=== PATIENT | female | born 1985 | race Two or more races ===

== ENCOUNTER 2018-01-22 13:17 | Inpatient (IN) | payer SELFPAY ==
[~2018-01-22] VITALS: Ht 162.6 cm; Wt 84.4 kg
[~2018-01-22 13:17] MED LIST: ceFAZolin 2GM PREMIX 2 GM/50 ML BAG IV ONE
[2018-01-22] MEDS ORDERED: ACETAMINOPHEN 325 MG TABLET. PO PRN (13:45)
[2018-01-22] MEDS ORDERED: ONDANSETRON PF 4 MG/2 ML VIAL. IV PRN ×2 (13:45→18:00)
[2018-01-22] MEDS ORDERED: MAG HYDROX/ALUMINUM HYD/SIMETH 30 ML ORAL.SUSP PO PRN ×2 (13:45→18:00)
[2018-01-22 13:47] LABS: BILIRUBIN,URINE NEGATIVE (NEG); CLARITY,URINE CLEAR; COLOR,URINE YELLOW; NITRITE,URINE NEGATIVE (NEG); PROTEIN,URINE NEGATIVE (NEG-TRACE); UROBILINOGEN,URINE 0.2 mg/dL (0.2 mg/dL)
[2018-01-22 14:03] LABS: BACTERIA,URINE MANY /HPF (0-FEW); RBC,URINE 0 /HPF (0-2); SQUAMOUS EPITHELIAL CELL,UR MOD /LPF
[2018-01-22] MEDS: IV RINGERS,LACTATED 1000ML 1,000 ML IV SCH (14:14)
[2018-01-22] MEDS ORDERED: CITRIC ACID/SODIUM CITRATE 30 ML SOLUTION. PO ONE (15:30)
[2018-01-22] MEDS ORDERED: 0.9 % SODIUM CHLORIDE 10 ML DISP.SYRIN. IV PRN ×2 (15:45→18:00)
[2018-01-22] MEDS ORDERED: OXYTOCIN 30 UNIT/500 ML PREMIX 500 ML IV PRN ×2 (15:45→18:00)
[2018-01-22 16:08] LABS: BASO % 0 % (0-3); EOS % 0 % (0-3); HEMATOCRIT 35.5 % (36.0-47.0); HEMOGLOBIN 12.1 g/dL (12.0-15.5); LYMPH # 2.5 x10^3/uL (1.0-4.8); LYMPH % 23 % (24-48); MEAN CORPUSCULAR HEMOGLOBIN 30 pg (25-35); MEAN CORPUSCULAR HGB CONC 34 g/dL (31-37); MEAN CORPUSCULAR VOLUME 87 fL (79-100); MONO # 0.5 x10^3/uL (0.0-1.1); MONO % 5 % (0-9); NEUT # 7.9 x10^3uL (1.8-7.7); NEUT % 72 % (31-73); PLATELET COUNT 169 x10^3/uL (140-400); RED BLOOD COUNT 4.09 x10^6/uL (3.50-5.40); RED CELL DISTRIBUTION WIDTH 13.6 % (11.5-14.5)
[2018-01-22] MEDS ORDERED: fentaNYL PF VIAL 100 MCG/2 ML VIAL ONE ×2 (16:26→16:48)
[2018-01-22] MEDS ORDERED: fentaNYL PF VIAL 100 MCG/2 ML VIAL IV PRN (16:30)
[2018-01-22] MEDS ORDERED: MORPHINE PF 5 MG/10 ML VIAL. ONE (16:48)
--- NOTE | 2018-01-22 16:49 | PDOC1 ---
OB - History Hx of Present Care: Good Care Ultrasounds: Normal mid trimester US Obstetrical Complications: None Medical Complications: None Past Family/Social History * Past Medical, Surgical, Family and Obstetric Histories reviewed from chart. Rubella: Immune RPR/VDRL: Negative GBS Status: Negative HBsAG: Negative OB - Chief Complaint & HPI Date of Admission: Date of Admission: Jan 22, 2018 at 13:17 Chief Complaint/History : 3 Para: 1 EGA: 38 Reason for admission: active labor (previous c/s) Indication for : desires repeat Admission Nurse Assessment Rev: Yes OB - Admission Exam Physical Exam Vitals: VS - Last 72 Hours, by Label Date Time Temp Pulse Resp B/P (MAP) Pulse Ox O2 Delivery O2 Flow Rate FiO2 01/22/18 16:28 Room Air HEENT: Normal Heart: Regular Rate Lungs: Clear Abdomen: Gravid, Non tender, Soft Extremities: Edema Reflexes: Normal Cervical Dilatation: 1cm Effacement: 75% Station: -3 Membranes: Intact Heart Rate: Normal Accelerations: Accelerations Present Decelerations: No decelerations Contractions on Admission: < 5 Minutes Apart Intensity: Firm Text A: 38 wks IUP Previous c/s Active labor P: Admit for repeat c/s. LI ASTORGA Jr, MD Jan 22, 2018 16:49
[2018-01-22] MEDS ORDERED: FAMOTIDINE 20 MG/2 ML VIAL ONE (17:43)
[2018-01-22] MEDS ORDERED: ONDANSETRON PF 4 MG/2 ML VIAL. ONE (17:43)
[2018-01-22] MEDS ORDERED: METOCLOPRAMIDE HCL 10 MG/2 ML VIAL. ONE (17:43)
--- NOTE | 2018-01-22 17:47 | PDOC4 ---
OB Operative Note Date: Jan 22, 2018 PRE OP DIAGNOSIS: Previoujs C- section POST OP DIAGNOSIS: Previous C- section OPERATION PERFORMED: R [facility] Surgeon Dr. Webb Anesthesia: Regional (Spinal) Blood Loss 500 ml Specimen placenta and OB Findings: Position (Vertex), Sex (Female), (8/9), Weight (6 Lb 10 oz) Complications none Additional Remarks pt. LI Bonner Jr, MD Jan 22, 2018 17:47
--- NOTE | 2018-01-22 17:58 | OP ---
DATE OF SURGERY: 01/22/2018 PREOPERATIVE DIAGNOSES: 1. A 38 weeks intrauterine . 2. Previous . 3. Active labor. POSTOPERATIVE DIAGNOSES: 1. A 38 weeks intrauterine . 2. Previous . 3. Active labor. PROCEDURE: Repeat low transverse section. SURGEON: Li Webb MD ANESTHESIA: Spinal. ESTIMATED BLOOD LOSS: 500 mL. COMPLICATIONS: None. FINDINGS: Viable female infant, Apgars 8 and 9, weight 6 pound 10 ounces. Three-vessel cord placenta delivered manually intact. SUMMARY: A 38 weeks term gestation, presented in active labor. The patient was counseled on the risks, benefits and expectations of repeat section and voiced clear understanding to proceed. DESCRIPTION OF PROCEDURE: The patient was taken to surgery suite and placed in dorsal supine position where she was prepped with ChloraPrep and draped in a sterile fashion. After adequate anesthesia, a Pfannenstiel skin incision was made with scalpel down to and through the fascia. Fascia was extended laterally using curved Blackman scissors. The superior edge of the fascia was grasped with 2 Yusra clamps and dissected free of the abdominal rectus muscle using blunt dissection along with Bovie cautery. The same process took place inferiorly. The abdominal rectus muscles were then dissected bluntly at the midline. The peritoneum was grasped with 2 hemostats and entered sharply with Metzenbaum scissors. This incision was extended superiorly as well as inferiorly. Ken ring retractor was placed. Low transverse hysterotomy incision was made with scalpel down to and through the amniotic sac. Hysterotomy incision was extended laterally and superiorly digitally. With the aid of fundal pressure, the infant's head was delivered in a smooth atraumatic manner. With additional fundal pressure, the anterior shoulder was delivered followed by posterior shoulder, and rest of female infant was delivered. The infant was suctioned with a bulb syringe orally and nasally, umbilical cord was clamped twice and cut. A viable female infant was handed to waiting nursing staff. Umbilical cord blood was then obtained. Three-vessel cord placenta was delivered manually intact. The uterus was then exteriorized and cleared of clot and debris with a moist lap. Hysterotomy incision was reapproximated using 1-0 Vicryl suture in running locked fashion. Uterus palpated firm. Fallopian tubes and ovaries appeared normal bilaterally. Posterior cul-de-sac was cleared of clot and debris with a moist lap. The uterus was then returned to the abdomen. The hysterotomy incision was reviewed and was hemostatic. The pericolic gutters were then cleared of clot and debris with a moist lap. Interceed was placed over the hysterotomy incision in an inverted T fashion. The Ken ring retractor was removed. The peritoneum was reapproximated using 1-0 Vicryl suture in running fashion. Fascia was reapproximated using 0 Vicryl suture in running fashion. Skin was reapproximated using 4-0 Vicryl suture in subcuticular manner. The patient tolerated the procedure well and was taken to recovery room in stable condition. Sponge and needle count correct x 3. LI WEBB MD DR: [facility]/larry JOB#: [id number] / [id number]
[2018-01-22] MEDS ORDERED: diphenhydrAMINE ORAL ELIXIR 12.5 MG/5 ML ML PO PRN (18:00)
[2018-01-22] MEDS ORDERED: IBUPROFEN 800 MG TABLET. PO PRN (18:00)
[2018-01-22] MEDS ORDERED: SIMETHICONE 80 MG TAB.CHEW PO PRN (18:00)
[2018-01-22] MEDS ORDERED: ZOLPIDEM 5 MG TABLET. PO PRN (18:00)
[2018-01-22] MEDS: KETOROLAC 30 MG/ML VIAL. IV PRN (19:16)
[2018-01-22 21:35] VITALS: BP 98/63
[2018-01-22 22:11] VITALS: BP 106/66
[2018-01-22 23:10] VITALS: BP 107/59
[2018-01-23 04:34] LABS: BASO % 0 % (0-3); EOS # 0.1 x10^3/uL (0.0-0.7); EOS % 1 % (0-3); HEMATOCRIT 32.1 % (36.0-47.0); LYMPH # 2.6 x10^3/uL (1.0-4.8); LYMPH % 22 % (24-48); MEAN CORPUSCULAR HEMOGLOBIN 30 pg (25-35); MEAN CORPUSCULAR HGB CONC 34 g/dL (31-37); MEAN CORPUSCULAR VOLUME 87 fL (79-100); MONO # 0.8 x10^3/uL (0.0-1.1); MONO % 7 % (0-9); NEUT # 8.4 x10^3uL (1.8-7.7); NEUT % 70 % (31-73); PLATELET COUNT 144 x10^3/uL (140-400); RED BLOOD COUNT 3.71 x10^6/uL (3.50-5.40); RED CELL DISTRIBUTION WIDTH 13.8 % (11.5-14.5)
[2018-01-23] MEDS: IV RINGERS,LACTATED 1000ML 1,000 ML IV SCH (05:24)
[2018-01-23 06:20] VITALS: BP 107/58
[2018-01-23] MEDS ORDERED: FERROUS SULFATE 325 MG TABLET. PO PRN (08:00)
[2018-01-23] MEDS: KETOROLAC 30 MG/ML VIAL. IV PRN (08:31)
[2018-01-23] MEDS: oxyCODONE/APAP 5/325 1 TAB TABLET PO PRN ×2 (08:31→14:39)
[2018-01-23 11:10] VITALS: BP 102/64
[2018-01-23] MEDS: IBUPROFEN 800 MG TABLET. PO PRN ×2 (14:39→22:22)
[2018-01-23 16:41] VITALS: BP 101/58
--- NOTE | 2018-01-23 19:57 | PDOC ---
OB Progress Note Date of Service 01/23/18 Time of Evaluation 0755 Notes Pt. feeling well. No complaints. Lab Laboratory Tests Test 01/22/18 13:35 01/22/18 15:55 01/23/18 04:00 Urine Collection Type Unknown Urine Color Yellow Urine Clarity Clear Urine pH 6.0 Urine Specific [place] 1.025 Urine Protein Negative mg/dL (NEG-TRACE) Urine Glucose (UA) Negative mg/dL (NEG) Urine Ketones (Stick) Negative mg/dL (NEG) Urine Blood Negative (NEG) Urine Nitrite Negative (NEG) Urine Bilirubin Negative (NEG) Urine Urobilinogen Dipstick 0.2 mg/dL (0.2 mg/dL) Urine Leukocyte Esterase Small (NEG) Urine RBC 0 /HPF (0-2) Urine WBC 11-20 /HPF (0-4) Urine Squamous Epithelial Cells Mod /LPF Urine Bacteria Many /HPF (0-FEW) Urine Mucus Marked /LPF White Blood Count 11.0 x10^3/uL (4.0-11.0) 12.0 x10^3/uL (4.0-11.0) Red Blood Count 4.09 x10^6/uL (3.50-5.40) 3.71 x10^6/uL (3.50-5.40) Hemoglobin 12.1 g/dL (12.0-15.5) 11.0 g/dL (12.0-15.5) Hematocrit 35.5 % (36.0-47.0) 32.1 % (36.0-47.0) Mean Corpuscular Volume 87 fL (79-100) 87 fL (79-100) Mean Corpuscular Hemoglobin 30 pg (25-35) 30 pg (25-35) Mean Corpuscular Hemoglobin Concent 34 g/dL (31-37) 34 g/dL (31-37) Red Cell Distribution Width 13.6 % (11.5-14.5) 13.8 % (11.5-14.5) Platelet Count 169 x10^3/uL (140-400) 144 x10^3/uL (140-400) Neutrophils (%) (Auto) 72 % (31-73) 70 % (31-73) Lymphocytes (%) (Auto) 23 % (24-48) 22 % (24-48) Monocytes (%) (Auto) 5 % (0-9) 7 % (0-9) Eosinophils (%) (Auto) 0 % (0-3) 1 % (0-3) Basophils (%) (Auto) 0 % (0-3) 0 % (0-3) Neutrophils # (Auto) 7.9 x10^3uL (1.8-7.7) 8.4 x10^3uL (1.8-7.7) Lymphocytes # (Auto) 2.5 x10^3/uL (1.0-4.8) 2.6 x10^3/uL (1.0-4.8) Monocytes # (Auto) 0.5 x10^3/uL (0.0-1.1) 0.8 x10^3/uL (0.0-1.1) Eosinophils # (Auto) 0.0 x10^3/uL (0.0-0.7) 0.1 x10^3/uL (0.0-0.7) Basophils # (Auto) 0.0 x10^3/uL (0.0-0.2) 0.0 x10^3/uL (0.0-0.2) Treponema pallidum Antibody Nonreactive (Nonreactive) Laboratory Tests Test 01/23/18 04:00 White Blood Count 12.0 x10^3/uL (4.0-11.0) Red Blood Count 3.71 x10^6/uL (3.50-5.40) Hemoglobin 11.0 g/dL (12.0-15.5) Hematocrit 32.1 % (36.0-47.0) Mean Corpuscular Volume 87 fL (79-100) Mean Corpuscular Hemoglobin 30 pg (25-35) Mean Corpuscular Hemoglobin Concent 34 g/dL (31-37) Red Cell Distribution Width 13.8 % (11.5-14.5) Platelet Count 144 x10^3/uL (140-400) Neutrophils (%) (Auto) 70 % (31-73) Lymphocytes (%) (Auto) 22 % (24-48) Monocytes (%) (Auto) 7 % (0-9) Eosinophils (%) (Auto) 1 % (0-3) Basophils (%) (Auto) 0 % (0-3) Neutrophils # (Auto) 8.4 x10^3uL (1.8-7.7) Lymphocytes # (Auto) 2.6 x10^3/uL (1.0-4.8) Monocytes # (Auto) 0.8 x10^3/uL (0.0-1.1) Eosinophils # (Auto) 0.1 x10^3/uL (0.0-0.7) Basophils # (Auto) 0.0 x10^3/uL (0.0-0.2) Medications Current Medications Ringer's Solution 1,000 ml @ 125 mls/hr Q8H IV Last administered on 01/23/18at 05:24; Start 01/22/18 at 13:34; Stop 01/23/18 at 13:46; Status DC Acetaminophen (Tylenol) 650 mg PRN Q6HRS PRN PO PAIN, TEMP > 100.5'F; Start at 13:45 Al Hydroxide/Mg Hydroxide (Mylanta Plus Xs) 15 ml PRN Q4HRS PRN PO HEARTBURN / GAS; Start 01/22/18 at 13:45; Stop 01/23/18 at 14:38; Status DC Ondansetron HCl (Zofran) 4 mg PRN Q6HRS PRN IV NAUSEA; Start 01/22/18 at 13:45 ; Stop 01/23/18 at 13:46; Status DC Citric Acid/ Sodium Citrate (Bicitra) 30 ml 1X ONCE PO Last administered on at 16:28; Start 01/22/18 at 15:30; Stop 01/23/18 at 13:46; Status DC Cefazolin Sodium/ Dextrose 50 ml @ 100 mls/hr 1X ONCE IV ; Start 01/22/18 at 15:45; Stop 01/23/18 at 13:46; Status DC Sodium Chloride (Normal Saline Flush) 3 ml QSHIFT PRN IV AFTER MEDS AND BLOOD DRAWS; Start 01/22/18 at 15:45; Stop 01/23/18 at 13:46; Status DC Oxytocin/Sodium Chloride 500 ml @ 0 mls/hr CONT PRN PRN IV Post delivery bleeding; Start 01/22/18 at 15:45; Stop 01/23/18 at 13:46; Status DC Ibuprofen (Motrin) 800 mg PRN Q6HRS PRN PO PAIN Last administered on 01/23/18at 14:39; Start 01/22/18 at 15:45 Fentanyl Citrate (Fentanyl 2ml Vial) 100 mcg PRN Q30MIN PRN IV PAIN Last administered on 01/22/18at 16:28; Start 01/22/18 at 16:30; Stop 01/23/18 at 13:46 ; Status DC Fentanyl Citrate (Fentanyl 2ml Vial) 100 mcg STK-MED ONCE .ROUTE ; Start at 16:26; Stop 01/23/18 at 13:46; Status DC Morphine Sulfate (Morphine Preservative Free) 5 mg STK-MED ONCE .ROUTE ; Start 01/22/18 at 16:48; Stop 01/23/18 at 13:46; Status DC Fentanyl Citrate (Fentanyl 2ml Vial) 100 mcg STK-MED ONCE .ROUTE ; Start at 16:48; Stop 01/23/18 at 13:46; Status DC Famotidine (Pepcid Vial) 20 mg STK-MED ONCE .ROUTE ; Start 01/22/18 at 17:43; Stop 01/23/18 at 13:46; Status DC Metoclopramide HCl (Reglan Vial) 10 mg STK-MED ONCE .ROUTE ; Start 01/22/18 at 17:43; Stop 01/23/18 at 13:46; Status DC Ondansetron HCl (Zofran) 4 mg STK-MED ONCE .ROUTE ; Start 01/22/18 at 17:43; Stop 01/23/18 at 13:46; Status DC Sodium Chloride (Normal Saline Flush) 3 ml QSHIFT PRN IV AFTER MEDS AND BLOOD DRAWS; Start 01/22/18 at 18:00; Stop 01/23/18 at 13:46; Status DC Oxytocin/Sodium Chloride 500 ml @ 125 mls/hr CONT PRN IV EXCESSIVE POST- BLEEDING; Start 01/22/18 at 18:00; Stop 01/23/18 at 01:59; Status DC Ibuprofen (Motrin) 800 mg PRN Q8HRS PRN PO INFLAMMATION; Start 01/22/18 at 18: 00 Ondansetron HCl (Zofran) 4 mg PRN Q6HRS PRN IV NAUSEA/VOMITING; Start 01/22/18 at 18:00 Docusate Sodium (Colace) 100 mg PRN BID PRN PO CONSTIPATION; Start 01/22/18 at 18:00 Al Hydroxide/Mg Hydroxide (Mylanta Plus Xs) 30 ml PRN Q4HRS PRN PO HEARTBURN / GAS; Start 01/22/18 at 18:00 Simethicone (Gas-X) 80 mg PRN AFTMEALHC PRN PO GAS / BLOATING; Start 01/22/18 at 18:00 Diphenhydramine HCl (Benadryl Oral Elixir) 12.5 mg PRN Q6HRS PRN PO ITCHING Last administered on 01/23/18at 12:05; Start 01/22/18 at 18:00 Ferrous Sulfate (Feosol) 325 mg BIDWMEALS PRN PO SEE COMMENTS; Start 01/23/18 at 08:00; Stop 01/23/18 at 08:00; Status DC Zolpidem Tartrate (Ambien) 5 mg PRN QHS PRN PO INSOMNIA, MAY REPEAT X1; Start 01/22/18 at 18:00 Oxycodone/ Acetaminophen (Percocet 5/325) 2 tab PRN Q4HRS PRN PO MODERATE PAIN , SEVERE PAIN Last administered on 01/23/18at 14:39; Start 01/22/18 at 18:00 Ketorolac Tromethamine (Toradol 30mg Vial) 30 mg PRN Q6HRS PRN IV PAIN Last administered on 01/23/18at 08:31; Start 01/22/18 at 18:00; Stop 01/27/18 at 17:59 Cefazolin Sodium/ Dextrose (Ancef 2gm Premix) 2 gm STK-MED ONCE IV ; Start 01/22 at 12:00; Stop 01/23/18 at 13:15; Status DC Exam Abd: soft, non tender, fundus firm Incision site: clean, dry and intact Assessment POD#1 s/p repeat c/s Plan of Care: Continue current Tx, Mgmt LI ASTORGA Jr, MD Jan 23, 2018 19:56
[2018-01-23] MEDS: DOCUSATE SODIUM 100 MG CAPSULE. PO PRN (22:22)
[2018-01-23 23:22] VITALS: BP 109/69
[2018-01-24 06:31] VITALS: BP 117/67
--- NOTE | 2018-01-24 08:08 | PDOC ---
OB Progress Note Date of Service 01/24/18 Time of Evaluation 0805 Notes Pt. feeling well. No complaints. Lab Laboratory Tests Test 01/22/18 13:35 01/22/18 15:55 01/23/18 04:00 Urine Collection Type Unknown Urine Color Yellow Urine Clarity Clear Urine pH 6.0 Urine Specific [place] 1.025 Urine Protein Negative mg/dL (NEG-TRACE) Urine Glucose (UA) Negative mg/dL (NEG) Urine Ketones (Stick) Negative mg/dL (NEG) Urine Blood Negative (NEG) Urine Nitrite Negative (NEG) Urine Bilirubin Negative (NEG) Urine Urobilinogen Dipstick 0.2 mg/dL (0.2 mg/dL) Urine Leukocyte Esterase Small (NEG) Urine RBC 0 /HPF (0-2) Urine WBC 11-20 /HPF (0-4) Urine Squamous Epithelial Cells Mod /LPF Urine Bacteria Many /HPF (0-FEW) Urine Mucus Marked /LPF White Blood Count 11.0 x10^3/uL (4.0-11.0) 12.0 x10^3/uL (4.0-11.0) Red Blood Count 4.09 x10^6/uL (3.50-5.40) 3.71 x10^6/uL (3.50-5.40) Hemoglobin 12.1 g/dL (12.0-15.5) 11.0 g/dL (12.0-15.5) Hematocrit 35.5 % (36.0-47.0) 32.1 % (36.0-47.0) Mean Corpuscular Volume 87 fL (79-100) 87 fL (79-100) Mean Corpuscular Hemoglobin 30 pg (25-35) 30 pg (25-35) Mean Corpuscular Hemoglobin Concent 34 g/dL (31-37) 34 g/dL (31-37) Red Cell Distribution Width 13.6 % (11.5-14.5) 13.8 % (11.5-14.5) Platelet Count 169 x10^3/uL (140-400) 144 x10^3/uL (140-400) Neutrophils (%) (Auto) 72 % (31-73) 70 % (31-73) Lymphocytes (%) (Auto) 23 % (24-48) 22 % (24-48) Monocytes (%) (Auto) 5 % (0-9) 7 % (0-9) Eosinophils (%) (Auto) 0 % (0-3) 1 % (0-3) Basophils (%) (Auto) 0 % (0-3) 0 % (0-3) Neutrophils # (Auto) 7.9 x10^3uL (1.8-7.7) 8.4 x10^3uL (1.8-7.7) Lymphocytes # (Auto) 2.5 x10^3/uL (1.0-4.8) 2.6 x10^3/uL (1.0-4.8) Monocytes # (Auto) 0.5 x10^3/uL (0.0-1.1) 0.8 x10^3/uL (0.0-1.1) Eosinophils # (Auto) 0.0 x10^3/uL (0.0-0.7) 0.1 x10^3/uL (0.0-0.7) Basophils # (Auto) 0.0 x10^3/uL (0.0-0.2) 0.0 x10^3/uL (0.0-0.2) Treponema pallidum Antibody Nonreactive (Nonreactive) Medications Current Medications Ringer's Solution 1,000 ml @ 125 mls/hr Q8H IV Last administered on 01/23/18at 05:24; Start 01/22/18 at 13:34; Stop 01/23/18 at 13:46; Status DC Acetaminophen (Tylenol) 650 mg PRN Q6HRS PRN PO PAIN, TEMP > 100.5'F; Start at 13:45 Al Hydroxide/Mg Hydroxide (Mylanta Plus Xs) 15 ml PRN Q4HRS PRN PO HEARTBURN / GAS; Start 01/22/18 at 13:45; Stop 01/23/18 at 14:38; Status DC Ondansetron HCl (Zofran) 4 mg PRN Q6HRS PRN IV NAUSEA; Start 01/22/18 at 13:45 ; Stop 01/23/18 at 13:46; Status DC Citric Acid/ Sodium Citrate (Bicitra) 30 ml 1X ONCE PO Last administered on at 16:28; Start 01/22/18 at 15:30; Stop 01/23/18 at 13:46; Status DC Cefazolin Sodium/ Dextrose 50 ml @ 100 mls/hr 1X ONCE IV ; Start 01/22/18 at 15:45; Stop 01/23/18 at 13:46; Status DC Sodium Chloride (Normal Saline Flush) 3 ml QSHIFT PRN IV AFTER MEDS AND BLOOD DRAWS; Start 01/22/18 at 15:45; Stop 01/23/18 at 13:46; Status DC Oxytocin/Sodium Chloride 500 ml @ 0 mls/hr CONT PRN PRN IV Post delivery bleeding; Start 01/22/18 at 15:45; Stop 01/23/18 at 13:46; Status DC Ibuprofen (Motrin) 800 mg PRN Q6HRS PRN PO PAIN Last administered on 01/23/18at 22:22; Start 01/22/18 at 15:45 Fentanyl Citrate (Fentanyl 2ml Vial) 100 mcg PRN Q30MIN PRN IV PAIN Last administered on 01/22/18at 16:28; Start 01/22/18 at 16:30; Stop 01/23/18 at 13:46 ; Status DC Fentanyl Citrate (Fentanyl 2ml Vial) 100 mcg STK-MED ONCE .ROUTE ; Start at 16:26; Stop 01/23/18 at 13:46; Status DC Morphine Sulfate (Morphine Preservative Free) 5 mg STK-MED ONCE .ROUTE ; Start 01/22/18 at 16:48; Stop 01/23/18 at 13:46; Status DC Fentanyl Citrate (Fentanyl 2ml Vial) 100 mcg STK-MED ONCE .ROUTE ; Start at 16:48; Stop 01/23/18 at 13:46; Status DC Famotidine (Pepcid Vial) 20 mg STK-MED ONCE .ROUTE ; Start 01/22/18 at 17:43; Stop 01/23/18 at 13:46; Status DC Metoclopramide HCl (Reglan Vial) 10 mg STK-MED ONCE .ROUTE ; Start 01/22/18 at 17:43; Stop 01/23/18 at 13:46; Status DC Ondansetron HCl (Zofran) 4 mg STK-MED ONCE .ROUTE ; Start 01/22/18 at 17:43; Stop 01/23/18 at 13:46; Status DC Sodium Chloride (Normal Saline Flush) 3 ml QSHIFT PRN IV AFTER MEDS AND BLOOD DRAWS; Start 01/22/18 at 18:00; Stop 01/23/18 at 13:46; Status DC Oxytocin/Sodium Chloride 500 ml @ 125 mls/hr CONT PRN IV EXCESSIVE POST- BLEEDING; Start 01/22/18 at 18:00; Stop 01/23/18 at 01:59; Status DC Ibuprofen (Motrin) 800 mg PRN Q8HRS PRN PO INFLAMMATION; Start 01/22/18 at 18: 00 Ondansetron HCl (Zofran) 4 mg PRN Q6HRS PRN IV NAUSEA/VOMITING; Start 01/22/18 at 18:00 Docusate Sodium (Colace) 100 mg PRN BID PRN PO CONSTIPATION Last administered on 01/23/18at 22:22; Start 01/22/18 at 18:00 Al Hydroxide/Mg Hydroxide (Mylanta Plus Xs) 30 ml PRN Q4HRS PRN PO HEARTBURN / GAS; Start 01/22/18 at 18:00 Simethicone (Gas-X) 80 mg PRN AFTMEALHC PRN PO GAS / BLOATING; Start 01/22/18 at 18:00 Diphenhydramine HCl (Benadryl Oral Elixir) 12.5 mg PRN Q6HRS PRN PO ITCHING Last administered on 01/23/18at 12:05; Start 01/22/18 at 18:00 Ferrous Sulfate (Feosol) 325 mg BIDWMEALS PRN PO SEE COMMENTS; Start 01/23/18 at 08:00; Stop 01/23/18 at 08:00; Status DC Zolpidem Tartrate (Ambien) 5 mg PRN QHS PRN PO INSOMNIA, MAY REPEAT X1; Start 01/22/18 at 18:00 Oxycodone/ Acetaminophen (Percocet 5/325) 2 tab PRN Q4HRS PRN PO MODERATE PAIN , SEVERE PAIN Last administered on 01/23/18at 14:39; Start 01/22/18 at 18:00 Ketorolac Tromethamine (Toradol 30mg Vial) 30 mg PRN Q6HRS PRN IV PAIN Last administered on 01/23/18at 08:31; Start 01/22/18 at 18:00; Stop 01/27/18 at 17:59 Cefazolin Sodium/ Dextrose (Ancef 2gm Premix) 2 gm STK-MED ONCE IV ; Start 01/22 at 12:00; Stop 01/23/18 at 13:15; Status DC Exam Abd: soft, non tender, fundus firm Incision site: clean, dry and intact Assessment POD#2 s/p repeat c/s Plan of Care: Continue current Tx, Mgmt LI ASTORGA Jr, MD Jan 24, 2018 08:08
[2018-01-24 08:45] VITALS: BP 113/69
[2018-01-24] MEDS: IBUPROFEN 800 MG TABLET. PO PRN (08:53)
[2018-01-24] MEDS: DOCUSATE SODIUM 100 MG CAPSULE. PO PRN (08:53)
[2018-01-24] MEDS: oxyCODONE/APAP 5/325 1 TAB TABLET PO PRN ×2 (13:10→19:55)
[2018-01-24 17:52] VITALS: BP 125/72
[2018-01-25 00:30] VITALS: BP 108/59
[2018-01-25 06:28] VITALS: BP 117/67
[2018-01-25] MEDS: DOCUSATE SODIUM 100 MG CAPSULE. PO PRN (10:25)
[2018-01-25] MEDS: oxyCODONE/APAP 5/325 1 TAB TABLET PO PRN (10:25)
[2018-01-25 12:00] VITALS: BP_SYST 102; BP_SYST 123; BP_DIAS 38; BP_DIAS 75
--- NOTE | 2018-01-25 16:01 | PDOC3 ---
Admit Date: 01/22/18 D/c Date: 01/25/18 Admit Dx: Term gestation with previous c/s in active labor D/c Dx: Same Procedure: Repeat LTCS Surgeon: Dr. Webb [facility] Course: Term gestation with previous c/s in active labor required repeat LTCS that was uncomplicated. D/c Diet: regular D/c Instructions: pelvic rest x 6 wks, no driving x 2 weeks, and no lifting greater than 20 lbs. x 4 wks. F/u in 2 wks with Elmer. LI EWBB Jr, MD Jan 25, 2018 16:01
--- NOTE | 2018-01-25 16:02 | DISCH ---
DISCHARGE INSTRUCTIONS Condition on Discharge Condition on Discharge: Stable Activity After Discharge Activity Instructions for Disc: Activity as tolerated Lifting Instructions after Dis: No heavy lifting Driving Instructions after Dis: No driving for 2 weeks Diet after Discharge Diet after Discharge: Regular Contacting the DRPierre after DC Call your doctor for: Concerns you may have Follow-Up Follow up with: Elmer in 2 weeks. LI ASTORGA Jr, MD Jan 25, 2018 16:02
[2018-01-25] MEDS ORDERED: IBUP800T19 PO (16:03)
[2018-01-25] MEDS ORDERED: DOCU-109 PO (16:03)
[2018-01-25] MEDS ORDERED: OXYC1TAB7 PO (16:03)
[2018-01-25 16:51] VITALS: BP 124/71
== END 2018-01-25 16:57 | disposition home or self-care (01) | DRG 766 ==
LOC: OBSVTOIN 13:17 → 3 SO LND 13:17 → 3 NORTH 21:32
PROVIDERS: ADMIT Obstetrics & Gynecology; ATTEND Obstetrics & Gynecology
PROC: 10D00Z1 Extraction of Products of Conception, Low, Open Approach (ICD-10-PCS; principal; 2018-01-22)
DX: O34.211 Maternal care for low transverse scar from previous cesarean delivery (principal); Z3A.38 38 weeks gestation of pregnancy; Z37.0 Single live birth
CPT/HCPCS: 36415; 81001; 85025; 86592; 86850; 86900; 86901; 87086; G0378; J0690; J1885; J2270; J2405; J2765; J3010; J7120; S0028